=== PATIENT | female | born 1945 | race Two or more races ===

== ENCOUNTER 2020-01-12 11:53 | Emergency (ER) | payer MEDICARE, MEDICAID ==
[~2020-01-12] VITALS: Ht 162.6 cm; Wt 83.2 kg
[2020-01-12] MEDS ORDERED: BENA20TA77 PO (12:01)
[2020-01-12] MEDS ORDERED: LIDOCAINE 5% TRANSDERMAL PATCH TD ONE (12:45)
[2020-01-12] MEDS ORDERED: ACETAMINOPHEN 325 MG TABLET PO ONE (12:45)
[2020-01-12] MEDS ORDERED: MORPHINE SULFATE 15 MG IR TABLET PO ONE (15:00)
[2020-01-12 16:46] VITALS: BP 137/74
== END 2020-01-12 16:57 | disposition home or self-care (01) ==
LOC: EMS 11:53
DX: M54.5 Low back pain (principal); I10 Essential (primary) hypertension; F17.210 Nicotine dependence, cigarettes, uncomplicated; Z79.899 Other long term (current) drug therapy
CPT/HCPCS: 72100; Z7502; Z7610